=== PATIENT | female | born 1995 | race Caucasian/White ===

== ENCOUNTER 2018-11-14 16:16 | Emergency (ER) | payer OTHER ==
[2018-11-14 16:23] VITALS: BP 127/85
--- NOTE | 2018-11-14 16:41 | EDPHY ---
H & P Time Seen by Provider: 11/14/18 16:21 HPI/ROS: HPI Finger laceration. 23-year-old female by private vehicle. This patient was at work. She was handling a new kitchen knife when it slipped from her right hand causing a avulsion type laceration to the volar aspect of her left 5th digit. No loss of sensation or weakness distally. She has had a tetanus shot within the last 5 years. No other complaints. ROS: Constitutional: No fever, no chills. No weakness. Skin: As above. Neurological: No focal weakness or altered sensation. Past medical history: Asthma. Extend cycle control. Social history: Nonsmoker. Here by herself. . No alcohol. Physical Exam: General Appearance: Alert, no distress. This patient is responding to questions appropriately and in full sentences. This patient appears well- hydrated and well-nourished. Eyes: Pupils equal and round no pallor or injection. No lid edema, erythema or injection. Left 5th digit: Significant for an avulsion flap type laceration volar aspect of the mid left 5th finger more ulnar aspect involving the ulnar aspect finger pad and crossing the distal phalangeal joint. There is no tendon involvement. The left 5th finger is neurovascularly intact. Please see wound care note for further details. Neurological: Motor sensory function is grossly intact. Cranial nerves are normal. Gait is normal. Skin: Warm and dry, no rashes. As above. Extremities are symmetrical. All joints range without pain or impingement. Psychiatric: No agitation. No depression. Database: EKG: Imaging: Procedures: Procedure: Laceration repair. Verbal consent was obtained from the patient. The 3 cm laceration on the volar aspect of the mid left 5th finger was anesthetized in the usual fashion. The wound was irrigated, draped and explored to its base with a gloved finger. There were no deep structures involved. No tendon injury was identified. No foreign body was appreciated on gross exploration. The wound was repaired with 10, 5.0 Ethilon Ethilon sutures placed in interrupted fashion. The wound repair was tolerated well and there were no complications. The procedure was performed by myself. Emergency department course: Triage vital signs reviewed. After suture repair is noted above wound care was discussed with the patient. Follow-up and return to emergency department precautions reviewed. An appropriate dressing was placed on the wound and bacitracin ointment was applied over the wound edges. Follow-up and return to emergency department precautions reviewed with patient. All of her questions were answered. She was discharged from the emergency department in good condition. Differential Diagnosis: The differential diagnosis on this patient includes but is not limited to left 5th finger laceration. Retained foreign body, tendon laceration, significant neurovascular injury unlikely. This represents a partial list of diagnoses considered. These considerations are based on history, physical exam, past history, reassessment and diagnostic testing. Smoking Status: Current some day smoker Constitutional: Initial Vital Signs Temperature (C) 36.4 C 11/14/18 16:20 Heart Rate 76 11/14/18 16:20 Respiratory Rate 18 11/14/18 16:20 Blood Pressure 127/85 H 11/14/18 16:20 O2 Sat (%) 96 11/14/18 16:20 O2 Delivery Mode Room Air Allergies/Adverse Reactions: No Known Allergies Allergy (Unverified 11/14/18 16:20) Home Medications: Medication Instructions Recorded NK [No Known Home Meds] 11/14/18 Departure - Departure Disposition: Home, Routine, Self-Care Clinical Impression: Laceration of finger Condition: Good Instructions: Care For Your Stitches (DC), Laceration (ED) Additional Instructions: Read and follow provided instructions. Sutures are to be removed in 8-10 days. This can be done here at the emergency department. Follow-up with your primary care physician or workman's Comp physician in 2 days for wound check. Ibuprofen dosin mg every 6 hours with meals for the next 3 days only. Take only as needed for pain. Return to the emergency department for worsening pain, bleeding, discoloration fever, drainage of pus or other serious concerns. Referrals: [facility] [Provider Group] - As per Instructions
== END 2018-11-14 17:13 | disposition home or self-care (01) ==
LOC: CED 16:16
PROC: 0HQGXZZ Repair Left Hand Skin, External Approach (ICD-10-PCS; principal; 2018-11-14)
DX: S61.217A Laceration without foreign body of left little finger without damage to nail, initial encounter (principal); W26.0XXA Contact with knife, initial encounter; Y99.0 Civilian activity done for income or pay
CPT/HCPCS: 99282-ER